=== PATIENT | female | born 1970 | race Caucasian/White ===

== ENCOUNTER 2019-08-27 20:20 | Emergency (ER) | payer BC, SELFPAY ==
[2019-08-27 20:21] VITALS: BP 130/84; PULSE 84; RESP 16; TEMP 36.2; O2SAT 99; BMI 23.3
[2019-08-27 20:59] LABS: Absolute Lymphocyte Count 3.46 X10^3/uL (0.83-4.51); Absolute Neutrophil Count 8.3 X10^3/uL (2.0-7.7); Basophil# 0.05 X10^3/uL; Basophil% 0.4 % (0-1); Eosinophil# 0.41 X10^3/uL; Eosinophils% 3.1 % (0-5); Hematocrit 42.5 % (37-47); Hemoglobin 14.3 g/dL (12.0-15.0); Lymphocyte # 3.46 X10^3/ul (4.0); Lymphocyte % 25.7 % (19-41); Mean Corp Hgb Conc 33.6 g/dL (32-36); Mean Corpuscular Hgb 31.4 pg (27.0-32.0); Mean Corpuscular Volume 93.4 fL (81-99); Mean Platelet Vol. 9.3 fl (6.2-12.0); Monocyte# 1.15 X10^3/uL; Monocyte% 8.6 % (0-10); Mucous, Urine 0 SEEN /hpf (<or=2+); NRBC Flagged by Analyzer 0 % (0-5); Neutrophil # 8.31 X10^3/uL (2.7-7.7); Neutrophil % 61.8 % (47-70); Platelet Count 385 K/mm3 (150-450); RBC Distribution Width CV 14.2 % (11.6-14.6); RBC Distribution Width SD 49.2 fl (35.1-43.9); Red Blood Count 4.55 M/mm3 (4.2-5.4); Squamous Epithelial Cells - UA 0 SEEN /hpf (5-10); White Blood Count 13.4 K/mm3 (4.4-11.0)
[2019-08-27 21:07] LABS: Color, Urine Red (Yellow); Glucose, Dipstick Normal (Normal); Ketone-Dipstick 5 mg/dl (Negative); Leukocyte Esterase-Dipstick 25 /ul (Negative); Nitrite-Dipstick Negative (Negative); Occult Blood-Urine 250 /ul (Negative); Protein-Dipstick 100 mg/dl (Negative); Urine Bilirubin Dipstick Negative (Negative); Urine Clarity Cloudy (Clear); Urine Urobilinogen Normal (Normal)
[2019-08-27 21:12] LABS: Anion Gap 6 (5-15); BUN 16 mg/dL (7-18); BUN/Creat Ratio 18.5 RATIO (10-20); Calcium,Total 9.2 mg/dL (8.5-10.1); Chloride 107 mmol/L (98-107); Creatinine, Serum 0.86 mg/dL (0.55-1.02); EST Glomerular Filtration Rate 75 mL/min (>60); Est Glom Filt Rate - Afr Amer 90 mL/min (>60); Estimated Creatinine Clearance 76.52 ml/min; Glucose 89 mg/dL (74-106); Potassium 4.3 mmol/L (3.5-5.1); Sodium Level 141 mmol/L (136-145)
[2019-08-27 21:13] LABS: Bacteria RARE /hpf (None Seen); Red Blood Cells-Urine > 100 SEEN /hpf (0-5); White Blood Cells 5-10 SEEN /hpf (0-5)
[2019-08-27 21:36] VITALS: BP 121/71; PULSE 68; RESP 18; TEMP 36.2; O2SAT 98
--- NOTE | 2019-08-27 21:36 | CT_ITS ---
STUDY: CT ABDOMEN AND PELVIS WITHOUT CONTRAST REASON FOR EXAM: Female, 48 years old. Left flank pain RADIATION DOSAGE (If Supplied By Facility): CTDIvol = ( 6.67 ) mGy, DLP = ( 348.02 ) mGycm TECHNIQUE: Transaxial images were obtained from the dome of the diaphragm to the symphysis pubis without oral contrast, and without intravenous contrast. Sagittal and coronal images were reconstructed. Individualized dose optimization techniques were used for this CT. COMPARISON: 2012 FINDINGS: The visualized lung bases are unremarkable. The visualized portions of the heart are within normal limits. Normal liver. Normal gallbladder and extrahepatic biliary system. Normal spleen. Normal pancreas. Normal bilateral adrenal glands. No obstructive uropathy, there is a hyperdense 2.6 cm mass in the upper pole of the left kidney and a stable hypodense 3.9 cm mass in the lower pole of the left kidney. The upper pole mass needs further evaluation with contrasted CT or MRI. Normal visualized stomach. Normal small intestine. Retained stool noted in the colon. There is non-visualization of the appendix. Normal abdominal aorta. Normal inferior vena cava. There are scattered subcentimeter mesenteric and retroperitoneal lymph nodes. Normal urinary bladder. There is absence of the uterus consistent with a prior hysterectomy. Normal abdominal wall. Normal osseous structures. CT/Abdomen/Pelvis without Cont IMPRESSION: No obstructive uropathy, there is a hyperdense 2.6 cm mass in the upper pole of the left kidney not mentioned on the previous CT scan of 2012. This should undergo further evaluation with contrast CT or MRI. Stable 3.9 cm cyst in the lower pole of the left kidney Scattered subcentimeter mesenteric and retroperitoneal lymph nodes Electronically Signed: Mj Fernandez MD at 22:30 EDT , Service support ,
--- NOTE | 2019-08-27 21:37 | ED.DCSUM_ITS ---
- ER Visit Summary Date of Service: 08/27/19 Chief Complaint: Left flank pain History of Present Illness: The patient is a 48 F presenting with left flank pain. Patient states this started last night. States it worsened this morning. This morning she noticed blood in her urine. She has a history of previous kidney stones. She has pain to her left back radiating to her left lower quadrant. Denies fever. Denies other complaints. Physical Examination: Vitals are stable. Patient is afebrile. Alert no acute distress. HEENT exam is unremarkable. Neck is supple. Lungs are clear and equal bilaterally. Heart is regular rate and rhythm. Abdomen is soft left lower quadrant tenderness with no guarding or rebound Back: Left CVA tenderness Extremities are unremarkable. Skin is warm and dry. No rash Remainder of exam is unremarkable. Emergency Department Course and Treatment: She was given morphine, Zofran, Toradol. CBC shows white count 13.4. Chemistries unremarkable. Urinalysis shows 5-10 white blood cells, over 100 red blood cells. Urine culture was sent. CT abdomen pelvis shows no obstructive uropathy, there is a hyperdense 2.6 cm mass in the upper pole of the left kidney not mentioned on the previous CT scan of 2011. This should undergo further evaluation with contrast CT or MRI. Stable 3.9 cm cyst in the lower pole of the left kidney. Scattered subcentimeter mesenteric and retroperitoneal lymph nodes. Patient is advised abnormal CT results and advised importance of follow-up. She is resting comfortably on reevaluation. She is given prescription for Bactrim and Coy. She will follow-up with her primary care physician. She is also given Dr. Frank for follow-up. Advised return to ED for worsening complaints. Disposition: Discharge home Impression: Left flank pain This note was generated with [employer] (FIG) dictation software. It may contain incorrect words, spelling, and punctuation that were not noted in review of the chart prior to signing ED Disposition - Plan for ED Patient: Instructions: FLANK PAIN, Uncertain Cause Prescriptions: Smz/Tmp Ds [Bactrim Ds] 1 tab PO BID #14 tab Prescription Printed Hydrocodone Bitart/Apap 5-325 [Coy 5MG-325MG] 1 tab PO Q6H PRN PRN 3 Days #8 tab PRN Reason: Pain Prescription Printed Referrals: Rigo Shne MD [Primary Care Provider] - Srinivasa Frank MD [STAFF PHYSICIAN] -
[2019-08-27] MEDS: Morphine 4 MG/ML Syringe IV (21:48)
[2019-08-27] MEDS: Ketorolac 30 MG/ML Syringe IV (21:48)
[2019-08-27] MEDS: Ondansetron 4 MG/2 ML Vial IV (21:48)
[2019-08-27] MEDS: 0.9% Normal Saline 1,000 ML 999 ML IV (21:53)
[2019-08-27 22:27] VITALS: BP 121/71; PULSE 68; RESP 18; TEMP 36.2; O2SAT 98
--- NOTE | 2019-08-27 23:14 | ED.DEP ---
ED Disposition - Plan for ED Patient: Instructions: FLANK PAIN, Uncertain Cause Prescriptions: Smz/Tmp Ds [Bactrim Ds] 1 tablet PO BID #14 tablet Hydrocodone Bitart/Apap 5-325 [[place] 5MG-325MG] 1 tablet PO Q6H PRN PRN 3 Days #8 tablet PRN Reason: Pain Referrals: Rigo Shen MD [Primary Care Provider] - Srinivasa Frank MD [STAFF PHYSICIAN] -
[2019-08-27] MEDS: Smz/Tmp Ds Tablet 1 TABLET PO (23:21)
[2019-08-27 23:38] VITALS: BP 132/60; PULSE 72; RESP 18; O2SAT 96
== END 2019-08-27 23:39 | disposition home or self-care (01) ==
PROVIDERS: Emergency Provider Emergency Medicine; Family Provider Family Medicine; PCP Family Medicine
DX: R10.9 Unspecified abdominal pain (principal); R31.9 Hematuria, unspecified; R11.0 Nausea; N28.89 Other specified disorders of kidney and ureter; N28.1 Cyst of kidney, acquired; R59.0 Localized enlarged lymph nodes; Z87.442 Personal history of urinary calculi; Z72.0 Tobacco use
CPT/HCPCS: 74176; 80048; 81001; 85025; 87077; 87086; 87088; 87186; 96361; 96374; 96375; 99283; J7030; A4216; J2405

== ENCOUNTER → 2019-08-29 17:53 | Outpatient (CLI) | payer BC, SELFPAY ==
[2019-08-27 20:21] VITALS: BMI 23.3
--- NOTE | 2019-08-29 15:00 | CYSPIN_PTH ---
PATIENT: EILEEN CUMMINGS LOC: [facility] U#:[id number] AGE/SX: 54/F ROOM: RE08/29/[address]: Dr. Srinivasa Frank MD : 1970 BED: DIS: SPEC #: [id number] RECD: 08/29/19 17:35 STATUS: SHARITA REDonna #: [id number] ANABEL: 08/29/19 15:[address]: Srinivasa Frank DEPT: CYTOLOGY RECD BY: Alexey Cobos ENTERED: 08/30/19 09:46 SP TYPE: CYSPIN FL OTHR DR: Dr. Rigo Shen MD Tissues: Urine Procedures: Pap Stain (control) Special Stain Group II Cytospin Fluid HEADER OPERATION: Not noted PRE-OP DIAGNOSIS: Hematuria TISSUE SUBMITTED: Urine for cytology DIAGNOSIS CYTOLOGY Urine for cytology (cytospin): Marked acute inflammation. Negative for malignant cells. AM:shabbir 10/16/19 CYTOLOGY STUDY Slides are reviewed. CYTOLOGY GROSS Received is 60 ml of brown cloudy fluid labeled with the patient's name and and designated per the requisition as urine. Submitted for cytology preparation. / shabbir 08/30/19 TC:2 CPT: 85497
[2019-08-29 17:56] LABS: Cytology, Body Fluid / CSF SEE PATHOLOGY REPORT
== END ==
PROVIDERS: Family Provider Family Medicine; PCP Family Medicine; Referring Provider Urology; Visit Provider Urology
DX: R31.9 Hematuria, unspecified (principal)
CPT/HCPCS: 88108; 88313

== ENCOUNTER → 2019-08-30 13:06 | Outpatient (CLI) | payer BC, SELFPAY ==
[2019-08-27 20:21] VITALS: BMI 23.3
--- NOTE | 2019-08-30 13:10 | CT_ITS ---
STUDY: CT ABDOMEN AND PELVIS WITH AND WITHOUT CONTRAST REASON FOR EXAM: Female, 48 years old. Gross hematuria RADIATION DOSAGE (If Supplied By Facility): CTDIvol = ( 13.17 ) mGy, DLP = ( 1538.37 ) mGycm TECHNIQUE: Transaxial images were obtained from the dome of the diaphragm to the symphysis pubis without oral contrast. IV Isovue 300 100 was administered. Sagittal and coronal images were reconstructed. Individualized dose optimization techniques were used for this CT. COMPARISON: 08/27/2019 FINDINGS: The visualized lung bases are unremarkable. The visualized portions of the heart are within normal limits. Normal liver. Normal gallbladder and extrahepatic biliary system. Normal spleen. Normal pancreas. Normal bilateral adrenal glands. No obstructive uropathy. There are bilateral punctate cortical medullary junction stones in both kidneys as well as simple cysts in the left kidney. In the upper pole of the left kidney however there is a complex mass which is hyperdense without contrast, and is not a simple cyst on either contrasted study with Hounsfield units of 84. This is concerning for neoplastic process. Normal visualized stomach. Normal small intestine. Normal colon. The appendix is visualized and appears normal. Appendix best seen on coronal recon image 39. Normal abdominal aorta. Normal inferior vena cava. Normal retroperitoneum. Normal urinary bladder. Normal abdominal wall. Normal osseous structures. CT/CT Abd/Pelvis W/WO Contrast IMPRESSION: The previously described hyperdense lesion in the upper pole of the left kidney continues to show suspicious characteristics on the contrasted images. It is clearly not a simple cyst and shows some subtle enhancement. An ultrasound or MRI could be performed for further evaluation. There is no obstructive uropathy or associated adenopathy or abnormality of the left renal vein. Nonobstructing nephrolithiasis with scattered simple cysts in the mid and lower portion of the left kidney No free intraperitoneal fluid, air, or suspicious adenopathy Electronically Signed: Mj Fernandez MD at 17:30 EDT , Service support ,
== END ==
LOC: CT 13:08
PROVIDERS: Family Provider Family Medicine; PCP Family Medicine; Referring Provider Urology; Visit Provider Urology
DX: R31.0 Gross hematuria (principal)
CPT/HCPCS: 74178; Q9967

== ENCOUNTER 2019-09-07 09:11 | Day surgery (SDC) | payer BC, SELFPAY ==
[2019-09-07] VITALS (10 sets, daily range): BP systolic 121–149; BP diastolic 59–81; PULSE 60–108; RESP 16–18; TEMP 36.2–36.6; O2SAT 95–98; BMI 23.3
[2019-09-07] MEDS: Lactated Ringers 1,000 ML 100 ML IV (09:45)
[2019-09-07] MEDS: Cefazolin 2 GM in 0.9% Normal Saline 100 ML IV (11:16)
--- NOTE | 2019-09-07 11:23 | DCINST_ITS ---
You will use the following diet at home:: Regular Your food should be the consistency of: Regular Discharge Activity: Return to Normal Activity Call your doctor if your incision/area has: Sudden Increased Bleeding Call your doctor if you observe: Fever of 101 or Higher Allergies/Adverse Reactions: Allergies Penicillins [PCN] Allergy (Verified 09/07/19 09:42) Rash Medications to take at Discharge Bupropion HCl [Wellbutrin Sr] 150 mg PO BID 09/06/19 Multivitamin [Once Daily] 1 ea PO DAILY 09/06/19 Ciprofloxacin [Cipro] 500 mg PO BID #6 tab 09/07/19 Hydrocodone/Acetaminophen [[place] 5-325 Tablet] 1 ea PO Q4H PRN PRN #10 tab 09/07/19 The following prescriptions were given: Ciprofloxacin [Cipro] 500 mg PO BID #6 tab Prescription Printed Hydrocodone/Acetaminophen [[place] 5-325 Tablet] 1 ea PO Q4H PRN PRN #10 tab PRN Reason: Pain Score 1-10/10 Prescription Printed Primary Care Physician: Rigo Shen MD [Primary Care Provider] - Test Results: Test results from this visit will be discussed in further detail at your follow- up appointment, if applicable. Please Follow Up With: Srinivasa Frank MD When: next week.
--- NOTE | 2019-09-07 11:45 | PCM.OPRPT ---
Report of Operation Date of Procedure: 09/07/19 Pre-Operative Diagnosis: Gross hematuria left renal mass Post-Operative Diagnosis: Same Surgery/Procedure Performed:: Cystoscopy, left retrograde pyelogram, interpretation fluoroscopic images, balloon dilation of the ureter, diagnostic ureteroscopy no stent. Description of Surgical Findings:: 48-year-old female taken back to the operating room at the smooth induction of anesthesia she was placed supine on the table then in dorsolithotomy position she is here for case she has gross hematuria and a mass in her kidney reevaluate the hematuria but check in the bladder check the ureter and make sure the mass is not within the collecting system of the kidney still may need to have the mass surgically addressed today as a diagnostic evaluation. She is taken back to the operating room at the smooth induction of anesthesia she was placed supine on the table in dorsolithotomy position, urethra vaginal area prepped and draped in usual fashion in the bladder with a 21 [place] rigid cystourethroscope entire urethra is normal, the bladder was normal trigone was identified, the left and right ureter orifice orifice were normal the bladder was nice and smooth no tumors stones or abnormality seen within the bladder think cannulated the left ureter orifice with a Glidewire and a Pollack catheter performed a retrograde Polygram see contrast going up to the kidney and filling out the collecting system in the renal fashion no no filling defects are seen a retrograde pyelogram this was normal. I then advanced a wire up into the kidney over the wire and balloon dilated distal ureter and then over the wire went in with a flexible ureteroscope I then inspected the kidney inspected the upper pole which is a bifid system in the midpole of the lower pole the kidney no filling defects or tumors or other normality seen within the collecting system. I then worked my way down the ureter and the side not to leave a stent drained the bladder patient anesthetic was reversed on work-up we found no tumors in the bladder no tumors within the ureter collecting system but she has a mass in the upper pole of the left kidney and probably a mass that needs to be surgically addressed when she sees me in the office we will plan for a treatment of that mass Type of Anesthesia:: General Drains: none - Admit VTE Documentation VTE Present on Admission: No VTE Mechan Device Prophylaxis: SCD's
[2019-09-07] MEDS: HYDROcodone Bitartrate/Apap 5/325 Tablet PO (13:40)
[2019-09-07] MEDS: Ondansetron 4 MG/2 ML Vial 8 MG IV (14:10)
== END 2019-09-07 14:38 | disposition home or self-care (01) ==
LOC: SDC 09:11 → AC 09:12
PROVIDERS: Family Provider Family Medicine; PCP Family Medicine; Referring Provider Urology; Visit Provider Urology
PROC: 0TJ98ZZ Inspection of Ureter, Via Natural or Artificial Opening Endoscopic (ICD-10-PCS; CPT 52351; principal; 2019-09-07 10:50)
DX: N28.89 Other specified disorders of kidney and ureter (principal); R31.0 Gross hematuria; N28.1 Cyst of kidney, acquired; F41.9 Anxiety disorder, unspecified; F17.200 Nicotine dependence, unspecified, uncomplicated; Z87.442 Personal history of urinary calculi
CPT/HCPCS: 52005; 76000; J7120; J2405

== ENCOUNTER 2019-10-07 07:33 | Day surgery (SDC) | payer BC, SELFPAY ==
[2019-09-07 09:40] VITALS: BMI 23.3
[2019-09-26 10:59] VITALS: BP 131/87; PULSE 76; RESP 17; TEMP 36.8; O2SAT 97; BMI 22.8
--- NOTE | 2019-09-26 11:23 | SDCEKG_ITS ---
Test Reason : Blood Pressure : / mmHG Vent. Rate : 064 BPM Atrial Rate : 064 BPM P-R Int : 162 ms QRS Dur : 084 ms QT Int : 386 ms P-R-T Axes : 071 041 049 degrees QTc Int : 398 ms Normal sinus rhythm Normal ECG Confirmed by FREDERIC HEADLEY, ALEXX ([id number]), video tape editor GUIDO CHAUDHARI ([id number]) on 09/28/2019 9:28:07 AM Referred By: Srinivasa Frank Confirmed By:ALEXX DE LA GARZA MD
[2019-09-26 12:49] LABS: Hematocrit 47.2 % (37-47); Hemoglobin 15.5 g/dL (12.0-15.0); Mean Corp Hgb Conc 32.8 g/dL (32-36); Mean Corpuscular Hgb 30.6 pg (27.0-32.0); Mean Corpuscular Volume 93.3 fL (81-99); Mean Platelet Vol. 9.6 fl (6.2-12.0); Platelet Count 363 K/mm3 (150-450); RBC Distribution Width CV 13.3 % (11.6-14.6); RBC Distribution Width SD 45.5 fl (35.1-43.9); Red Blood Count 5.06 M/mm3 (4.2-5.4); White Blood Count 10.5 K/mm3 (4.4-11.0)
[2019-09-26 13:21] LABS: AST(SGOT) 14 U/L (15-37); Alanine Aminotransfer ALT/SGPT 20 U/L (13-56); Albumin, Serum 3.9 g/dL (3.2-5.0); Alkaline Phosphatase 111 U/L (45-117); Anion Gap 7 (5-15); BUN 9 mg/dL (7-18); BUN/Creat Ratio 13.4 RATIO (10-20); Calcium,Total 9.1 mg/dL (8.5-10.1); Chloride 107 mmol/L (98-107); Creatinine, Serum 0.67 mg/dL (0.55-1.02); EST Glomerular Filtration Rate 100 mL/min (>60); Est Glom Filt Rate - Afr Amer 121 mL/min (>60); Estimated Creatinine Clearance 98.22 ml/min; Globulin 4.1 g/dL (2.2-4.2); Glucose 77 mg/dL (74-106); Potassium 4.1 mmol/L (3.5-5.1); Sodium Level 140 mmol/L (136-145)
[2019-10-07] VITALS (13 sets, daily range): BP systolic 91–116; BP diastolic 54–76; PULSE 63–81; RESP 16–18; TEMP 36.1–36.8; O2SAT 93–98; BMI 22.8
--- NOTE | 2019-10-07 | KI_PTH ---
PATIENT: EILEEN CUMMINGS LOC: [facility] U#:[id number] AGE/SX: 48/F ROOM: RE10/07/[address]: Dr. Srinivasa Frank MD : 1970 BED: DIS: 10/08/2019 SPEC #: [id number] RECD: 10/07/19 10:26 STATUS: SHARITA REDonna #: [id number] ANABEL: 10/07/19 00:[address]: Srinivasa Frank DEPT: SURGICAL PATHOLOGY RECD BY: Wendy Clark ENTERED: 10/07/19 11:28 SP TYPE: KIDNEY BX OTHR DR: Dr. Rigo Shen MD Tissues: A - Kidney, NOS B - Kidney, NOS Procedures: Frozen Section (charge) Surgery Specimen Level IV HEADER OPERATION: Laparoscopic robotic biopsy of kidney PRE-OP DIAGNOSIS: Neoplasm of left kidney TISSUE SUBMITTED: A - Biopsy left upper kidney, frozen section, B - Additional biopsy left upper kidney, frozen section FROZEN SECTION DIAGNOSIS A. Left upper kidney, core biopsy: Benign renal parenchymal tissue. Negative for malignancy. B. Left upper kidney, additional core biopsy: Benign renal parenchymal tissue. Negative for malignancy. SJ:shabbir 10/07/19 MICROSCOPIC DIAGNOSIS A. Left upper kidney, core biopsy: Benign renal parenchyma. No evidence of malignancy. Rare dystrophic microcalcifications. B. Left upper kidney, core biopsy: Benign renal parenchyma. No evidence of malignancy. AM:shabbir 10/11/19 MICROSCOPIC DESCRIPTION Slides are reviewed. GROSS DESCRIPTION A - Received fresh for frozen section diagnosis labeled with the patient's name is a specimen designated biopsy left upper kidney. The specimen consists of a core biopsy of delong soft tissue measuring 1.5 cm in length and 0.1 cm in diameter. The entire specimen is submitted for frozen section diagnosis in one cassette. B - Received fresh for frozen section diagnosis labeled with the patient's name is a specimen designated additional biopsy left upper kidney. The specimen consists of three core biopsies of delong soft tissue measuring 0.5 to 1.5 cm in length and 0.1 cm in diameter. The entire specimen is submitted for frozen section diagnosis in one cassette. / ISABELLE:shabbir 10/07/19 TC: CPT: 62081 x2, 45988 x2
[2019-10-07] MEDS: Lactated Ringers 1,000 ML 100 ML IV (06:27)
[2019-10-07] MEDS: Cefazolin 2 GM in 0.9% Normal Saline 100 ML IV (07:29)
--- NOTE | 2019-10-07 11:04 | DCINST_ITS ---
- Discharge Diagnoses Current Active Problems: Possible left renal mass Reason(s) for Visit for Discharge Instructions: Laparoscopic biopsy of renal mass You will use the following diet at home:: Regular Your food should be the consistency of: Regular Discharge Activity: Return to Normal Activity, May not drive while taking narcotic pain medications., May Shower Return to work on:: 11/04/19 Call your doctor if your incision/area has: Sudden Increased Bleeding Call your doctor if you observe: Fever of 101 or Higher Suture Line Care: Avoid Pulling/Pushing, Avoid Pinching/Bending Allergies/Adverse Reactions: Allergies Penicillins [PCN] Allergy (Verified 10/07/19 06:00) Rash Medications to take at Discharge Bupropion HCl [Wellbutrin Sr] 150 mg PO BID 09/06/19 Multivitamin [Once Daily] 1 ea PO DAILY 09/06/19 Primary Care Physician: Rigo Shen MD [Primary Care Provider] - Test Results: Test results from this visit will be discussed in further detail at your follow- up appointment, if applicable. Please Follow Up With: Srinivasa Frank MD When: 2 weeks Proposed Discharge Date: 10/08/19
--- NOTE | 2019-10-07 11:08 | OP.PCM_ITS ---
Report of Operation Date of Procedure: 10/07/19 Pre-Operative Diagnosis: Left renal mass upper pole Post-Operative Diagnosis: No mass seen suspect resolved hematoma Surgery/Procedure Performed:: Laparoscopic robotic assisted biopsy of kidney and intraoperative ultrasound interpretation of ultrasound images Description of Surgical Findings:: 48-year-old female presented 2 months ago with severe pain in the right side and colic and went to the hospital with gross bleeding. Took her to surgery we did a cystoscopy found nothing in her bladder we did ureteroscopy found no tumors or abnormalities in the upper tract on the ureter. CAT scan was reviewed and she appeared to have an enhancing mass in the upper pole the left kidney so we talked about the options of management including observation biopsy of the mass and partial nephrectomy. Recommended we proceed with a partial nephrectomy plan is to remove the mass that appears to be enhancing on CAT scan it was measured 3 cm a fairly large mass and a normal-sized kidney. Patient was taken back to the operating room after smooth induction of anesthesia she was placed in supine position and we then she underwent endotracheal intubation and anesthesia and placement of 2 IVs she was then placed in full flank with the table flexed pressure points padded she had an axillary roll in place, support for her shoulders and axillary roll in the back when she was padded in the full flank w ith a modified flank position then the abdomen was prepped and draped in usual sterile fashion. We used a Veress needle to obtain a pneumoperitoneum. I then placed my camera port right arm trocar left arm trocar and second right robotic trocar and then an news production assistant air seal port. I then first dissected the colon off the kidney reflecting the colon off completely from above the spleen all the way down to the pelvis I then lifted up the gonadal vessels and ureter use the grafter to pull this up then I dissected underneath the kidney until I encountered a lumbar vein and the main renal vein a clip was placed in the lumbar vein 2 clips down to clips up I transected it but there was a bleeding from a posterior branch could not place a clip on this posterior branch so ended up using a stitch and used a 4 o Prolene in the RV [address] a [id number] stitch on the bleeder and then this controlled the bleeding from this I then dissected out the renal artery once this was done then I used an ultrasound probe went up to the kidney I dissected out the kidney used the ultrasound probe and I first I identify the 2 cyst in the lower pole the kidney I went up to the upper pole the kidney where the abnormality was seen on CAT scan and I could not identify the 3 cm mass seen on CAT scan I dissected the kidney completely so that I could rotate it and I ultrasound of the upper pole extensively again could not identify a mass in the upper pole of the kidney as seen on CAT scan. I then reviewed the CAT scan again and thought perhaps this was a hematoma but blood and perhaps this is resolved so we then decided to do a biopsy of the kidney using a 18-gauge biopsy gun we advanced this to the patient's abdomen to the upper pole and we took 3 biopsies from the upper pole the kidney and the l ocation where I suspect that the tumor would be based on the ultrasound and CAT scan findings. The ultrasound did not show a tumor the biopsies all came back negative for carcinoma and was normal parenchyma tissue. At this point I think she probably had a hematoma advanced in the upper pole the kidney she bled and this has resolved and so I do not think a partial nephrectomy is indicated and I certainly do not want to do a radical nephrectomy. Patient's anesthetic was reversed we closed the 2 air seal port and camera port with stitches I went spoke to the family I letter know the findings that on ultrasound I could not see a tumor that need to be resected we did biopsies the biopsies all came back negative and therefore we can stop the procedure at this point and were negative doing a partial nephrectomy and would like to do nephrectomy. Patient anesthetic was reversed all instrument incisions were closed with subarticular stitches she was extubated taken to PACU good condition and transferred to the PACU area. Type of Anesthesia:: General Drains: cifuentes - Admit VTE Documentation VTE Present on Admission: No VTE Mechan Device Prophylaxis: SCD's
[2019-10-07] MEDS: Bupivacaine Mpf 0.5% 30 ML VIAL (11:10)
[2019-10-07] MEDS: Ketorolac 15 MG/ML Vial IV ×3 (12:24→23:58)
[2019-10-07] MEDS: 0.45% Normal Saline 1,000 ML 125 ML IV ×2 (12:35→20:19)
[2019-10-07] MEDS: HYDROcodone Bitartrate/Apap 5/325 Tablet PO ×3 (13:20→21:30)
[2019-10-07] MEDS: buPROPion (SR) 150 MG Tablet.SA PO ×2 (13:25→21:31)
[2019-10-07] MEDS: Pantoprazole Sodium 20 MG Tablet PO (13:25)
[2019-10-07] MEDS: 0.9% Saline Lock 10 ML Syringe IV (23:59)
[2019-10-08] VITALS: BP 99/64; PULSE 89; RESP 16; TEMP 36.8; O2SAT 94
[2019-10-08 04:10] VITALS: BP 115/73; PULSE 86; RESP 16; TEMP 36.8; O2SAT 98
[2019-10-08] MEDS: 0.45% Normal Saline 1,000 ML 125 ML IV (04:10)
[2019-10-08] MEDS: HYDROcodone Bitartrate/Apap 5/325 Tablet PO ×2 (04:13→08:40)
[2019-10-08] MEDS: Ketorolac 15 MG/ML Vial IV ×2 (05:15→11:16)
[2019-10-08] MEDS: 0.9% Saline Lock 10 ML Syringe IV (05:15)
[2019-10-08] MEDS: Enoxaparin 40 MG/0.4 ML Syringe SC (05:15)
[2019-10-08 07:27] LABS: Hematocrit 36.1 % (37-47); Hemoglobin 11.8 g/dL (12.0-15.0); Mean Corp Hgb Conc 32.7 g/dL (32-36); Mean Corpuscular Hgb 30.3 pg (27.0-32.0); Mean Corpuscular Volume 92.8 fL (81-99); Mean Platelet Vol. 9.4 fl (6.2-12.0); Platelet Count 285 K/mm3 (150-450); RBC Distribution Width CV 13.6 % (11.6-14.6); RBC Distribution Width SD 46.4 fl (35.1-43.9); Red Blood Count 3.89 M/mm3 (4.2-5.4); White Blood Count 11.5 K/mm3 (4.4-11.0)
[2019-10-08 07:36] VITALS: O2SAT 96
[2019-10-08 08:20] LABS: Anion Gap 5 (5-15); BUN 7 mg/dL (7-18); BUN/Creat Ratio 9.7 RATIO (10-20); Chloride 108 mmol/L (98-107); Creatinine, Serum 0.72 mg/dL (0.55-1.02); EST Glomerular Filtration Rate 92 mL/min (>60); Est Glom Filt Rate - Afr Amer 112 mL/min (>60); Glucose 101 mg/dL (74-106); Potassium 3.7 mmol/L (3.5-5.1); Sodium Level 139 mmol/L (136-145)
[2019-10-08 08:31] VITALS: BP 116/69; PULSE 78; RESP 20; TEMP 37.1; O2SAT 95
[2019-10-08] MEDS: Multivitamins,Therapeutic Tablet 1 TABLET PO (08:41)
[2019-10-08] MEDS: Docusate Sodium 100 MG Capsule PO (08:41)
[2019-10-08] MEDS: buPROPion (SR) 150 MG Tablet.SA PO (08:41)
[2019-10-08] MEDS: Pantoprazole Sodium 20 MG Tablet PO (08:42)
--- NOTE | 2019-10-08 13:39 | NURSING ---
Marian called and notified that found phone wood furniture assembler in room- she states she will not be able to come for a few days. Notified it will be with security. Pt verbalized understanding.
== END 2019-10-08 11:44 | disposition home or self-care (01) ==
LOC: AC 13:17 → SDC 13:17 → MS3 13:24
PROVIDERS: Family Provider Family Medicine; PCP Family Medicine; Referring Provider Urology; Visit Provider Urology
PROC: (CPT 50543; principal; 2019-10-07 07:10)
DX: D30.02 Benign neoplasm of left kidney (principal); F41.9 Anxiety disorder, unspecified; Z87.442 Personal history of urinary calculi; Z79.899 Other long term (current) drug therapy; F17.200 Nicotine dependence, unspecified, uncomplicated
CPT/HCPCS: 00860; 50200; S2900; 80048; 80053; 85027; 86850; 86900; 86901; 86920; 86922; 88305; 88331; 93005; 99251; 99406; J7120; A4216; G0463; J2405

== ENCOUNTER 2024-09-21 17:27 | Emergency (ER) | payer OTHER, SELFPAY ==
[2024-09-21 17:28] VITALS: BP 135/57; PULSE 72; RESP 16; TEMP 36.6; O2SAT 98; BMI 19.8
[2024-09-21 17:53] LABS: Mucous, Urine 0 SEEN /hpf (<or=2+); Red Blood Cells-Urine 0 SEEN /hpf (0-5)
[2024-09-21 17:54] LABS: Absolute Lymphocyte Count 4.22 X10^3/uL (0.83-4.51); Absolute Neutrophil Count 6.4 X10^3/uL (2.0-7.7); Basophil# 0.05 X10^3/uL; Basophil% 0.4 % (0-1); Eosinophil# 0.47 X10^3/uL; Eosinophils% 3.9 % (0-5); Hematocrit 43.9 % (37-47); Hemoglobin 14.4 g/dL (12.0-15.0); Lymphocyte # 4.22 X10^3/ul (0.83-4.51); Mean Corp Hgb Conc 32.8 g/dL (32-36); Mean Corpuscular Hgb 30.4 pg (27.0-32.0); Mean Corpuscular Volume 92.6 fL (81-99); Mean Platelet Vol. 8.6 fl (6.2-12.0); Monocyte# 0.83 X10^3/uL; Monocyte% 6.9 % (0-10); NRBC Flagged by Analyzer 0 % (0-5); Neutrophil # 6.43 X10^3/uL (2.7-7.7); Neutrophil % 53.4 % (47-70); Platelet Count 475 K/mm3 (150-450); RBC Distribution Width CV 13.3 % (11.6-14.6); RBC Distribution Width SD 45.1 fl (35.1-43.9); Red Blood Count 4.74 M/mm3 (4.2-5.4); White Blood Count 12.1 K/mm3 (4.4-11.0)
[2024-09-21 17:58] LABS: Color, Urine Yellow (Yellow); Glucose, Dipstick Normal (Normal); Ketone-Dipstick Negative (Negative); Leukocyte Esterase-Dipstick 25 /ul (Negative); Nitrite-Dipstick Positive (Negative); Occult Blood-Urine Negative /ul (Negative); Protein-Dipstick Negative (Negative); Urine Bilirubin Dipstick Negative (Negative); Urine Clarity Clear (Clear); Urine Urobilinogen Normal (Normal)
[2024-09-21 18:08] LABS: White Blood Cells 5-10 SEEN /hpf (0-5)
[2024-09-21 18:09] LABS: Bacteria 3+ /hpf (None Seen); Squamous Epithelial Cells - UA 0-5 SEEN /hpf (5-10)
[2024-09-21 18:14] LABS: ALB/GLOB Ratio 1.1 RATIO (0.9-2.4); AST(SGOT) 7 U/L (15-37); Alanine Aminotransfer ALT/SGPT 18 U/L (13-56); Albumin, Serum 3.9 g/dL (3.2-5.0); Alkaline Phosphatase 96 U/L (45-117); Anion Gap 4 (5-15); BUN 12 mg/dL (7-18); BUN/Creat Ratio 16.8 RATIO (10-20); Calcium,Total 9.2 mg/dL (8.5-10.1); Chloride 105 mmol/L (98-107); Creatinine, Serum 0.71 mg/dL (0.55-1.02); EST Glomerular Filtration Rate 91 mL/min (>60); Est Glom Filt Rate - Afr Amer 111 mL/min (>60); Estimated Creatinine Clearance 82.29 ml/min; Globulin 3.6 g/dL (2.2-4.2); Glucose 96 mg/dL (74-106); Potassium 4.3 mmol/L (3.5-5.1); Protein, Total 7.5 g/dL (6.4-8.2); Sodium Level 138 mmol/L (136-145)
[2024-09-21 19:28] VITALS: BP 115/73; PULSE 78; RESP 16
--- NOTE | 2024-09-21 19:44 | CT_ITS ---
We are attempting to reach an attending provider to discuss findings. An addendum with communication details will be sent when the communication is complete. EXAM: CT ABDOMEN AND PELVIS WITH INTRAVENOUS CONTRAST CLINICAL INDICATION: Right lower quadrant abdominal pain TECHNIQUE: Helically acquired images were obtained of the abdomen and pelvis with intravenous contrast. This CT exam was performed using one or more of the following dose reduction techniques: automated exposure control, adjustment of the mA and/or kV according to patient size, and/or use of iterative reconstruction technique. CONTRAST: IV 100mL Isovue-370 RADIATION DOSE: CTDIvol = 11.35 mGy, DLP = 452.88 mGy-cm COMPARISON: August 30, 2019, unenhanced and enhanced exam. FINDINGS: LOWER THORAX: Unremarkable. Lung bases are clear. No cardiomegaly. No significant pericardial effusion. ABDOMEN: LIVER: On portal venous phase exam there is a hyperdense predominantly solid centrally slightly hypodense mass in the subcapsular posterior right lobe of the liver, roughly 2.2 cm x 2 cm x 2.1 cm. Not visible on prior exam on similar portal venous phase exam enhancement. GALLBLADDER AND BILE DUCTS: Unremarkable. No calcified gallstones. No gallbladder distention or wall edema. No intra- or extrahepatic biliary ductal dilation. PANCREAS: Unremarkable. No focal cystic or solid mass. SPLEEN: Unremarkable. Normal size without focal cystic or solid mass. ADRENALS: Unremarkable. No nodules. KIDNEYS AND URETERS: Small nonobstructing stone in the upper pole left kidney. The previously seen mass at the superior-medial left upper pole kidney is no longer apparent and there is some thin irregular cortex. There is a cluster of at least 2 simple appearing cysts at the lower pole left kidney, mildly larger than in 2019 but with no complex features on unenhanced CT. STOMACH AND BOWEL: Moderate fluid and mild gas in the stomach, mild gas and fluid in the small bowel. Moderate gas and mild stool in the proximal half of the colon, moderate gas in the rectum. Minimal sigmoid diverticulosis. No stomach or bowel distention. No focal inflammatory change. PELVIS: APPENDIX: A segment of normal appendix is seen on coronal images. BLADDER: Unremarkable. REPRODUCTIVE: Hysterectomy. ABDOMEN and PELVIS: INTRAPERITONEAL SPACE: Unremarkable. No ascites or other fluid collection. No free air. BONES/JOINTS: Unremarkable. No suspicious lytic or blastic abnormality. SOFT TISSUES: Unremarkable. No discrete abdominal or pelvic wall hernia. VASCULATURE: Atherosclerotic calcifications of aortoiliac vessels. No high-grade arterial stenosis. LYMPH NODES: Unremarkable. No enlarged lymph nodes. CT/Abdomen/Pelvis W IV Cont ONLY IMPRESSION: 1. No evidence of appendicitis. 2. Presumed treatment or resection of indeterminate complex mass in the upper pole of the left kidney since 2019 with residual cortical atrophy and a nonobstructing parenchymal stone 3. New indeterminate predominantly solid and hyperdense-enhancing mass in the subcapsular posterior right lobe of the liver. Imaging characteristics are not typical for benign hemangioma or perfusion variation. RECOMMENDATION: MRI of the liver. Electronically Signed: Mae Gonzalez MD at 21:40 EST ,
--- NOTE | 2024-09-21 19:51 | EDS_ITS ---
HPI HPI - GI History of Present Illness Chief Complaint: Abd Pain Informant: patient Abdominal Pain/Flank Pain Onset: Yesterday Context: Gradual Onset Timing: Continuous Quality: Sharp Location: RLQ Worsened by: Car ride Relieved by: Nothing Nausea/Vomiting/Emesis GI Symptom: Positive for Nausea and Vomiting Quality: Positive for Nonbilious; Negative for Blood streaks, Coffee ground or Hematemesis Diarrhea/Melena/Hematochezia GI Symptom: Negative for Diarrhea, Melena or Hematochezia Associated Symptoms Associated Symptoms: Negative for Dysuria, Frequency or Hematuria LMP: Hysterectomy Narrative Narrative: Patient presents with that began yesterday. Patient states that it started in her right lower quadrant and then progressed to the periumbilical area and then back to the right lower quadrant. Patient states her pain is sharp. Patient s tates it has been constant. Patient states nothing makes it better. Patient states it is worse when she had a bump in the road. Patient admits to some nausea and vomiting. Patient denies any hematemesis or coffee-ground emesis. Patient admits to decreased appetite. Patient denies any diarrhea, melena, or hematochezia. Patient denies any urinary complaints. [facility] Medical History Kidney stones Home Medications ?Medication ?Instructions ?Recorded ?Last Taken ?Type multivitamin 1 ea PO DAILY vitamin 09/06/19 Unknown History ciprofloxacin HCl 500 mg tablet 500 mg PO BID #6 TABLETS 09/21/24 Unknown Rx hydrocodone-acetaminophen 5-325mg 1 tab PO Q6H PRN PRN Pain 3 days 09/21/24 Unknown Rx 5mg-325mg #10 TABLETS Allergy/AdvReac Type Severity Reaction Status Date / Time Penicillins (PCN) Allergy Rash Verified 09/21/24 17:28 Surgical History H/O: hysterectomy Social History household members: spouse and other housing: house Smoking Status: Current every day smoker tobacco type: cigarettes ROS ROS ED Constitutional Constitutional ED: Denies chills or fever(s) Eyes Eyes: Denies blurry vision or change in vision ENT ENT ED: Denies rhinorrhea or sore throat Cardiovascular Cardiovascular: Denies chest pain or palpitations Respiratory/Chest Respiratory/Chest: Denies cough or dyspnea Gastrointestinal Gastrointestinal: Reports abdominal pain, nausea and vomiting; Denies diarrhea or melena Genitourinary Genitourinary ED: Denies dysuria or hematuria Musculoskeletal Musculoskeletal: Denies back pain or neck pain Integumentary Denies abscess or rash Neurologic Neurologic: Denies headache(s) or weakness Allergic/Immunologic Allergic/Immunologic ED: Denies mouth swelling or urticaria EXAM Physical Exam Const Vital Signs: 09/21/24 17:28 09/21/24 19:28 09/21/24 21:00 Temperature 98 F Temperature Source Oral Pulse Rate 72 78 64 Respiratory Rate 16 16 18 Blood Pressure 135/57 H 115/73 124/72 H Blood Pressure Mean 83 87 89 Pulse Ox 98 96 Oxygen Delivery Method Room Air Room Air 09/21/24 23:00 Temperature Temperature Source Pulse Rate 77 Respiratory Rate Blood Pressure 116/92 H Blood Pressure Mean 102 Pulse Ox Oxygen Delivery Method Positive well nourished and well developed General Appearance ED: well developed and NAD HEENT Reports moist mucous membranes normocephalic Neck supple and no JVD Resp normal respiratory effort and clear to auscultation bilaterally Cardio regular rate and regular rhythm GI non-distended GI Narrative: There is abdominal pain with heel strike. Palpation: soft, tender RLQ, McBurney's point and Rovsing's sign and rebound tenderness present McBurney's point; Negative for guarding Neuro CN's II-XII intact bilaterally, moves all extremities and no sensory deficits noted Sensorium / Orientation: alert Motor Exam: strength 5/5 throughout Psych mental status grossly normal MDM MDM MDM Narrative Medical decision making narrative: Differential diagnosis includes appendicitis, ovarian cyst, ovarian torsion, ureteral calculus, pyelonephritis, urinary tract infection, diverticulitis, colitis, and viral illness. CBC will be obtained to assess for leukocytosis and anemia. Comprehensive metabolic profile will be obtained to assess for electrolyte abnormality, hepatic function, and renal function. Urinalysis will be obtained to assess for urinary tract infection and hematuria. CT scan of the abdomen pelvis will be obtained to assess for appendicitis, ovarian cyst, and ureteral calculus. Lab Data Attestation: I reviewed the patient's lab results. Lab results narrative: CBC was reviewed. There is a slight leukocytosis of 12.1. The remainder is within normal limits. Comprehensive metabolic profile was reviewed and was within normal limits. Urinalysis was reviewed. There are positive nitrites with 3+ bacteria. Leukocyte esterase was 25 with 5-10 white blood cells. Labs: Laboratory Results - last 24 hr 09/21/24 17:41 WBC 12.1 H RBC 4.74 Hgb 14.4 Hct 43.9 MCV 92.6 MCH 30.4 MCHC 32.8 RDW Std Deviation 45.1 H RDW Coeff of Al 13.3 Plt Count 475 H MPV 8.6 Immature Gran % (Auto) 0.400 Neut % (Auto) 53.4 Lymph % (Auto) 35.0 [place] % (Auto) 6.9 Eos % (Auto) 3.9 Baso % (Auto) 0.4 Absolute Neuts (auto) 6.4 Absolute Lymphs (auto) 4.22 Nucleated RBC % 0 Sodium 138 Potassium 4.3 Chloride 105 Carbon Dioxide 29.0 Anion Gap 4 L BUN 12 Creatinine 0.71 Estim Creat Clear Calc 82.29 Est GFR (MDRD) Af Amer 111 Est GFR (MDRD) Non-Af 91 BUN/Creatinine Ratio 16.8 Glucose 96 Calcium 9.2 Total Bilirubin 0.10 L AST 7 L ALT 18 Alkaline Phosphatase 96 Total Protein 7.5 Albumin 3.9 Globulin 3.6 Albumin/Globulin Ratio 1.1 Urine Color Yellow Urine Clarity Clear Urine pH 7.0 Ur Specific [place] 1.010 Urine Protein Negative Urine Glucose (UA) Normal Urine Ketones Negative Urine Occult Blood Negative Urine Nitrite Positive H Urine Bilirubin Negative Urine Urobilinogen Normal Ur Leukocyte Esterase 25 H Urine RBC 0 SEEN Urine WBC 5-10 SEEN Ur Squamous Epith Cells 0-5 SEEN Urine Bacteria 3+ Urine Mucus 0 SEEN Radiography Diagnostic Testing: Clinical Impression(s) from Imaging Studies Abdomen/Pelvis CT 09/21/24 19:44 IMPRESSION: 1. No evidence of appendicitis. 2. Presumed treatment or resection of indeterminate complex mass in the upper pole of the left kidney since 2019 with residual cortical atrophy and a nonobstructing parenchymal stone 3. New indeterminate predominantly solid and hyperdense-enhancing mass in the subcapsular posterior right lobe of the liver. Imaging characteristics are not typical for benign hemangioma or perfusion variation. RECOMMENDATION: MRI of the liver. Electronically Signed: Mae Gonzalez MD at 21:40 EST Reading Location ID and State: [facility] / [place] Tel , Service support , ADDENDUM: 09/21/242205 IMPRESSION: 1. No evidence of appendicitis. 2. Presumed treatment or resection of indeterminate complex mass in the upper pole of the left kidney since 2019 with residual cortical atrophy and a nonobstructing parenchymal stone 3. New indeterminate predominantly solid and hyperdense-enhancing mass in the subcapsular posterior right lobe of the liver. Imaging characteristics are not typical for benign hemangioma or perfusion variation. RECOMMENDATION: MRI of the liver. N.B. : The above Results were Read Back by Mae Gonzalez MD to Chong Chen DO, and understanding confirmed on 09/21/2024 21:59:37 (ET). Electronically Signed: Mae Gonzalez MD at 21:40 EST , CT scan of the abdomen pelvis was obtained. There is no evidence of appendicitis. There is a hyperdense enhancing mass in the subcapsular posterior right lobe of the liver. Radiologist recommended MRI of the liver. This was interpreted by the radiologist and was also independently reviewed by myself. Additional Tests and Interventions Additional Tests or Interventions: Urine culture was ordered. Treatment and Re-Evaluation :: Patient was given IV fluids, morphine, and Zofran. Patient was given a dose of Dilaudid. Patient is feeling better after this. Patient was advised of her findings. Patient was given a dose of Cipro here. Patient is given a prescription for Cipro. Patient was also given a prescription for a short course of [place]. Patient was instructed to drink plenty of fluids. Patient was given an outpatient order for an MRI of her liver. Patient was instructed to follow-up with her primary care physician for results of this. Patient was instructed to return if worse in any way. Patient understood and was agreeable with the plan. All questions were answered. Discharge Plan Triage Chief Complaint: Abd Pain ED Provider: Chong Chen Dx/Rx/DC Orders Clinical Impression: Right lower quadrant abdominal pain, Urinary tract infection, Liver mass, right lobe Instructions: ED Cystitis Female Adult Prescriptions: New hydrocodone-acetaminophen 5-325 mg tablet 1 tab PO Q6H PRN PRN (Reason: Pain) 3 Days Qty: 10 0RF ciprofloxacin HCl 500 mg tablet 500 mg PO BID Qty: 6 0RF No Action multivitamin 1 EACH tablet 1 ea PO DAILY Primary Care Provider: Rigo Shen Referrals: Rigo Shen MD [Primary Care Provider] - 3-5 Days Print Language: Georgian Disposition Disposition: Home, Self Care
[2024-09-21] MEDS: Ondansetron 4 MG/2 ML Vial IV (20:07)
[2024-09-21] MEDS: 0.9% Normal Saline (1000mL) 1,000 ML 1000 ML IV (20:07)
[2024-09-21] MEDS: Morphine 4 MG/ML Syringe IV (20:08)
[2024-09-21 21:00] VITALS: BP 124/72; PULSE 64; RESP 18; O2SAT 96
[2024-09-21] MEDS: HYDROmorphone 1 MG/ML Syringe 0.5 MG IV (22:27)
[2024-09-21 23:00] VITALS: BP 116/92; PULSE 77
[2024-09-21] MEDS: Ciprofloxacin 500 MG Tablet PO (23:31)
[2024-09-21 23:38] VITALS: BP 116/92; PULSE 73; RESP 18; O2SAT 98
== END 2024-09-21 23:39 | disposition home or self-care (01) ==
PROVIDERS: Emergency Provider Emergency Medicine; PCP Family Medicine; Visit Provider Emergency Medicine
DX: R11.2 Nausea with vomiting, unspecified (principal); N39.0 Urinary tract infection, site not specified; R16.0 Hepatomegaly, not elsewhere classified; R10.31 Right lower quadrant pain; F17.210 Nicotine dependence, cigarettes, uncomplicated
CPT/HCPCS: 74177; 80053; 81001; 85025; 87077; 87086; 87088; 87186; 96361; 96374; 96375; 99283; J7030; Q9967; A4216; J2405